=== PATIENT | female | born 1960 | race Caucasian/White ===

== ENCOUNTER 2024-03-30 08:03 | Emergency (ER) | payer OTHER ==
[2024-03-30] MEDS: Acetaminophen/HYDROcodone 325-10 MG Tab PO ONE (08:26)
== END 2024-03-30 10:21 | disposition home or self-care (01) ==
LOC: DL.ED 08:03
DX: G58.8 Other specified mononeuropathies (principal); Z88.8 Allergy status to other drugs, medicaments and biological substances; Z79.82 Long term (current) use of aspirin; Z79.899 Other long term (current) drug therapy; Z95.5 Presence of coronary angioplasty implant and graft
CPT/HCPCS: 73130; 99283; A9270